=== PATIENT | male | born 1950 | race Caucasian/White ===

== ENCOUNTER 2018-09-22 18:56 | Emergency (ER) | payer MEDICARE, OTHER ==
[~2018-09-22] VITALS: Ht 180.3 cm; Wt 89.8 kg
[~2018-09-22 18:56] MED LIST: ARICEPT5 MG PO; CITALOPRAM HBR20 MG PO; CITALOPRAM HBR40 MG PO; D-AMPHETAMINE PO; LISINOPRIL-HCT1 EAC2 PO; NAMENDA10 MG PO; PRILOSEC OTC20 MG PO
--- OUTSIDE RECORDS SUMMARY | 2018-09-22 19:00 | XMS REPORT | Summary of Care ---
Author Author [facility] Address [address] [place] [address] Phone Unavailable Care Team Providers Care Lamp Developer Name Role Phone JUNAID Lui, KHOA Unavailable Unavailable MITCHELL Lui, ONEIL Unavailable Unavailable TAURUS BOGGS DC, PAULINO BENITEZ Unavailable Unavailable TAURUS Lui, PAULINO MCKAY DC, RIVAS Unavailable Unavailable MITCHELL BOGGS, ONEIL Unavailable Unavailable JUNAID BOGGS DC, KHOA GONZALEZ Unavailable Unavailable Unavailable Unavailable Functional Status Name Dates Details Functional status health issues are not documented Status: Name Dates Details Cognitive status health issues are not documented Status: Problems Name Dates Details Epicondylitis, lateral (726.32, M77.10) Status: Active Chronic pain of left elbow (719.42, M25.522) Status: Active Cellulitis (682.9, L03.90) Status: Active Infected sebaceous cyst of skin (706.2, L72.3) Status: Active Prostate cancer screening (V76.44, Z12.5) Status: Active Depression screening (V79.0, Z13.89) Status: Active Refused influenza vaccine (V64.06, Z28.21) Status: Active Rectal bleeding (569.3, K62.5) Status: Active Change in stool caliber (787.99, R19.4) Status: Active Abdominal pain, acute, epigastric (789.06, R10.13) Status: Active Encounter for hepatitis C virus screening test for high risk patient (V73.89, Z11.59) Status: Active Advance directive discussed with patient (V65.49, Z71.89) Status: Active At low risk for fall (V49.89, Z91.81) Status: Active ADD (attention deficit disorder) (314.00, F98.8) Status: Active Dementia (294.20, F03.90) Status: Active Hiatal hernia with GERD (530.81, K21.9) Status: Active Diverticulosis of colon (562.10, K57.30) Status: Active Essential (primary) hypertension (401.9, I10) Status: Active Pre-diabetes (790.29, R73.03) Status: Active Chest pain (786.50, R07.9) Status: Active Muscle weakness (generalized) (728.87, M62.81) Status: Active Left ventricular hypertrophy by electrocardiogram (429.3, I51.7) Status: Active Hyperlipidemia (272.4, E78.5) Status: Active On statin therapy (V58.69, Z79.899) Status: Active Abnormal stress ECG with treadmill (794.39, R94.39) Status: Active 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 Active Citalopram Hydrobromide TABS 60 mg daily * Refills: 0 Active Adderall 30 MG Oral Tablet TAKE 1 TABLET DAILY DIRECTED. * Refills: 0 Active Dexilant 60 MG Oral Capsule Delayed Release TAKE 1 CAPSULE DAILY * Refills: 0 * Start : 10-Feb-2017 Active Aricept 5 MG Oral Tablet TAKE 1 TABLET DAILY DIRECTED. * Refills: 0 Active Aspirin EC Low Strength 81 MG Oral Tablet Delayed Release TAKE 1 TABLET DAILY * Quantity: 90 Refills: 1 ONEIL MEDRANO M.D. * Start : 24-Jun-2017 Active Rosuvastatin Calcium 10 MG Oral Tablet TAKE 1 TABLET BY MOUTH AT BEDTIME * Quantity: 30 Refills: 2 ONEIL MEDRANO M.D. * Start : 22-Sep-2017 Active Nitroglycerin 0.4 MG Sublingual Tablet Sublingual PLACE 1 TABLET UNDER THE TONGUE EVERY 5 MINUTES FOR UP TO 3 DOSES NEEDED FOR CHEST PAIN.CALL 911 IF PAIN PERSISTS. * Quantity: 25 Refills: 2 ONEIL MEDRANO M.D. * Start : 24-Jun-2017 Active Lisinopril 10 MG Oral Tablet TAKE 1 TABLET DAILY. * Quantity: 90 Refills: 2 ONEIL MEDRANO M.D. * Start : 07-Jul-2017 Active Meloxicam 7.5 MG Oral Tablet TAKE 1 TABLET TWICE DAILY WITH FOOD. * Quantity: 60 Refills: 3 JUNAID M.D., KHOA * Start : 04-Nov-2017 Active Diclofenac Sodium 1 % Transdermal Gel APPLY TO LOWER EXTREMITIES, 4 GM OF GEL TO AFFECTED AREA 4 TIMES DAILY. DO NOT APPLY MORE THAN 16 GM DAILY TO ANY ONE AFFECTED JOINT. * Quantity: 1 Refills: 2 JUNAID M.D., KHOA * Start : 04-Nov-2017 Active 100 GM Tube MethylPREDNISolone 4 MG Oral Tablet Therapy Pack TAKE DIRECTED ON PACKAGE. * Quantity: 1 Refills: 0 JUNAID M.D., KHOA * Start : 04-Nov-2017 Active 21 Tablet Pack Allergies and Adverse Reactions Name Dates Details No Known Drug Allergies (Allergy) Status: Active Past Medical History Name Dates Details History of benign prostatic hypertrophy (V13.89, Z87.438) Status: Resolved History of colonic polyps (V12.72, Z86.010) Status: Resolved History of esophageal reflux (V12.79, Z87.19) Status: Resolved History of Peripheral neuropathy, hereditary/idiopathic (356.9, G60.9) Status: Resolved Procedures Procedure Dates Details History of Cholecystectomy Completed Immunization Name Dates Details Immunizations not documented Family History Name Dates Details Family history of rheumatoid arthritis (V17.7, Z82.61) Status: Active Name Dates Details Family history of Hypertension (V17.49) Status: Active Family history of Coronary Artery Disease (V17.49) Status: Active Family history of Lung Cancer (V16.1) Status: Active Social History Name Dates Details - Status: Name Dates Details Never smoker Vital Signs Date Test Result Details No Known Vitals to report Results Date Description Value Details 04-Nov-20179:05 [U] XRAY HAND MIN 3 VWS RIGHT 15493 XR HAND MIN 3 VWS RIGHT Images acquired, not reported on this accession number. Plan of Care Name Dates Details Planned Observations Planned Goals not documented Planned Encounters Appointment; LESLIE HAQ M.D. On: 14-Nov-2017 10:15 Appointment; KHOA QUIROGA M.D. On: 02-Dec-2017 9:15 Instructions Name Dates Details Instructions not documented Encounters Appointment; RIVSA ENAMORADO P.A. Encounter Diagnosis: Problem not documented On: 12-Jul-2016 8:45 Appointment; RIVAS ENAMORADO P.A. Encounter Diagnosis: Problem not documented On: 25-Oct-2016 10:15 Appointment; RIVAS ENAMORADO P.A. Encounter Diagnosis: Problem not documented On: 10-Feb-2017 8:30 Appointment; RIVAS ENAMORADO P.A. Encounter Diagnosis: Problem not documented On: 10-Jun-2017 8:15 Appointment; TRAM, ECHO Encounter Diagnosis: Problem not documented On: 16-Jun-2017 8:00 Appointment; ONEIL MEDRANO M.D. Encounter Diagnosis: Problem not documented On: 24-Jun-2017 14:00 Appointment; TRAM, STRESS Encounter Diagnosis: Problem not documented On: 24-Jun-2017 15:00 Appointment; ONEIL MEDRANO M.D. Encounter Diagnosis: Problem not documented On: 07-Jul-2017 15:20 Appointment; RIVAS ENAMORADO P.A. Encounter Diagnosis: Problem not documented On: 15-Sep-2017 11:00 Appointment; KHOA QUIROGA M.D. Encounter Diagnosis: Problem not documented On: 25-Sep-2017 10:00 Appointment; KHOA QUIROGA M.D. Encounter Diagnosis: Problem not documented On: 04-Nov-2017 9:30
[2018-09-22] MEDS ORDERED: TRAMADOL HCL 50 MG TAB PO NR (20:00)
--- NOTE | 2018-09-22 20:19 | Diagnostic Imaging Report ---
SHOULDER LEFT COMPLETE - 2 views HISTORY: Pain. Left shoulder pain fall. COMPARISON: None available. FINDINGS: Bones: No acute displaced fracture. Osseous alignment is within normal limits. Joints: The joint spaces are well-maintained. Soft tissues: The soft tissues appear unremarkable. IMPRESSION: No acute radiographic abnormality. Signed by: Dr. Sukhjinder Ramsey M.D. on 09/22/2018 8:16 PM
--- NOTE | 2018-09-22 20:20 | Diagnostic Imaging Report ---
ELBOW LEFT COMPLETE - 3 views HISTORY: Pain. Left elbow pain. Fall. COMPARISON: None available. FINDINGS: Bones: No acute displaced fracture. Osseous alignment is within normal limits. Calculation adjacent to the medial epicondyle, possible epicondylitis. Joints: The joint spaces are well-maintained. Soft tissues: The soft tissues appear unremarkable. IMPRESSION: 1. No acute radiographic abnormality. 2. Calculation adjacent to the medial epicondyle, possible epicondylitis. Signed by: Dr. Sukhjinder Ramsey M.D. on 09/22/2018 8:17 PM
== END 2018-09-22 21:00 | disposition home or self-care (01) ==
LOC: ER 18:56
DX: S46.012A Strain of muscle(s) and tendon(s) of the rotator cuff of left shoulder, initial encounter (principal); S50.02XA Contusion of left elbow, initial encounter; W01.0XXA Fall on same level from slipping, tripping and stumbling without subsequent striking against object, initial encounter; Y93.01 Activity, walking, marching and hiking; Y92.008 Other place in unspecified non-institutional (private) residence as the place of occurrence of the external cause
CPT/HCPCS: 99283

== ENCOUNTER → 2019-03-05 | Day surgery (SDC) | payer MEDICARE ==
--- NOTE | 2019-03-04 11:43 | Diagnostic Imaging Report ---
EXAMINATION: CHEST 2 VIEWS INDICATION: Pre-operative COMPARISON: None FINDINGS: LINES/TUBES:None LUNGS:The lungs are well-inflated. No focal consolidation or pulmonary edema. PLEURA:No pleural effusion or pneumothorax. MEDIASTINUM:The cardiomediastinal silhouette appears normal in size and shape. BONES/SOFT TISSUES:No acute osseous injury. ABDOMEN:No free air under the diaphragm. IMPRESSION: No focal pneumonia or pulmonary edema. Signed by: Alee Chun MD on 03/04/2019 11:40 AM
[2019-03-04 12:07] LABS: BASOPHILS % 0.4 % (0.0-1.0); EOSINOPHILS # (AUTO) 0.1 (0.0-0.4); EOSINOPHILS % 1.2 % (0.0-6.0); HEMATOCRIT 44.1 % (38.2-49.6); HEMOGLOBIN 14.7 g/dL (14.0-18.0); LYMPHOCYTES # (AUTO) 1.4 (1.0-3.2); LYMPHOCYTES % 20.2 % (18.0-39.1); MEAN CORPUSCULAR HEMOGLOBIN 30.6 pg (28-32); MEAN CORPUSCULAR HGB CONC 33.3 g/dL (31-35); MEAN CORPUSCULAR VOLUME 91.7 fL (81-99); MONOCYTES # (AUTO) 0.6 (0.2-0.8); MONOCYTES % 8.5 % (4.4-11.3); NEUTROPHILS # (AUTO) 4.6 (2.1-6.9); NEUTROPHILS % 69.4 % (38.7-80.0); PLATELET COUNT 224 x10e3/uL (140-360); RED BLOOD COUNT 4.81 x10e6/uL (4.3-5.7)
[2019-03-04 12:26] LABS: BLOOD UREA NITROGEN 11 mg/dL (7-26); BUN/CREATININE RATIO 11 (6-25); CALCIUM 9.7 mg/dL (8.4-10.2); CARBON DIOXIDE 25 mmol/L (22-29); CHLORIDE 101 mmol/L (98-107); CREATININE, SERUM 0.96 mg/dL (0.72-1.25); EST GLOMERULAR FILTRATION RATE > 60 ML/MIN (60-); GLUCOSE 105 mg/dL (74-118); SODIUM 138 mmol/L (136-145)
[~2019-03-05] MED LIST changes: +BUPIVACAINE 0.25%/EPI 30ML SDV INJ ONE; +DEXAMETHASONE SOD PHOS INJ 4 MG/ML VIAL ONE; +FENTANYL CITRATE/PF 100MCG/2 ML INJ ONE; +HYDROCODONE/APAP 7.5MG-325MG 1 EA TAB ONE; +HYDROGEN PEROXIDE 120 ML BTL ONE; +LIDOCAINE HCL 2% LOCAL INJ 5 ML SDV VIAL INJ ONE; +LISINOPRIL10 MG PO; +MIDAZOLAM HCL 2 MG/2 ML VIAL ONE; +ONDANSETRON HCL INJ 2MG/ML 2ML 2 MG/ML VIAL ONE; +PROPOFOL IV EMULSION 10 MG/ML 20 ML VIAL ONE; +SEVOFLURANE INHAL SOLN 250 ML PEN BTL ONE
--- OUTSIDE RECORDS SUMMARY | 2019-03-05 07:08 | XMS REPORT ---
Author Author [facility] Address Unknown Phone Unavailable Care Team Providers Care Entry Level Management Name Role Phone ERIC GONZALEZ Unavailable Unavailable Reinier GONZALES Unavailable Unavailable Problems This patient has no known problems. Allergies, Adverse Reactions, Alerts This patient has no known allergies or adverse reactions. Medications This patient has no known medications. Results Test Description Test Time Test Comments Text Results Atomic Results Result Comments CHEST 2 VIEWS 2019-03-04 11:39:00 [facility] [address] [place] [address] Patient Name: RUDDY SIMMONS MR #: [id number] : 1950 Age/Sex: 68/M Req #: [id number] Adm Physician: Ordered by: ERIC GONZALEZ MD Report #: [id number] Location: OR Room/Bed: Procedure: [id number] DX/CHEST 2 VIEWS Exam Date: 03/04/19 Exam Time: 1115 REPORT STATUS: Signed EXAMINATION: CHEST 2 VIEWS INDICATION: Pre-operative COMPARISON: None FINDINGS: LINES/TUBES:None LUNGS:The lungs are well-inflated. No focal consolidation or pulmonary edema. PLEURA:No pleural effusion or pneumothorax. MEDIASTINUM:The cardiomediastinal silhouette appears normal in size and shape. BONES/SOFT TISSUES:No acute osseous injury. ABDOMEN:No free air under the diaphragm. IMPRESSION: No focal pneumonia or pulmonary edema. Signed by: Cisco Roman MD on 03/04/2019 11:40 AM Dictated By: CISCO ROMAN MD 114 Transcribed By: TOYN OGLESBY on 03/04/19 114 COPY TO: ERIC GONZALEZ MD ELBOW LEFT COMPLETE 2018-09-22 20:16:00 [place] [id number] Patient Name: RUDDY SIMMONS MR #: [id number] : 1950 Age/Sex: 67/M Req #: [id number] Adm Physician: Ordered by: ELFEGO LEE MD Report #: [id number] Location: ER Room/Bed: Procedure: [id number] DX/ELBOW LEFT COMPLETE Exam Date: 09/22/18 Exam Time: 2000 REPORT STATUS: Signed ELBOW LEFT COMPLETE - 3 views HISTORY: Pain. Left elbow pain. Fall. COMPARISON: None available. FINDINGS: Bones: No acute displaced fracture. Osseous alignment is within normal limits. Calculation adjacent to the medial epicondyle, possible epicondylitis. Joints: The joint spaces are well-maintained. Soft tissues: The soft tissues appear unremarkable. IMPRESSION: 1. No acute radiographic abnormality. 2. Calculation adjacent to the medial epicondyle, possible epicondylitis. Signed by: Dr. Valentina Glaser M.D. on 09/22/2018 8:17 PM Dictated By: VALENTINA GLASER MD 16 Transcribed By: YASMANI on 09/22/182016 COPY TO: ELFEGO LEE MD SHOULDER LEFT COMPLETE 2018-09-22 20:15:00 [place] [id number] Patient Name: RUDDY SIMMONS MR #: [id number] : 1950 Age/Sex: 67/M Req #: [id number] [facility] Physician: Ordered by: JAYLON GONZALES MD Report #: [id number] Location: ER Room/Bed: Procedure: [id number] DX/SHOULDER LEFT COMPLETE Exam Date: 09/22/18 Exam Time: 1956 REPORT STATUS: Signed SHOULDER LEFT COMPLETE - 2 views HISTORY: Pain. Left shoulder pain fall. COMPARISON: None available. FINDINGS: Bones: No acute displaced fracture. Osseous alignment is within normal limits. Joints: The joint spaces are well-maintained. Soft tissues: The soft tissues appear unremarkable. IMPRESSION: No acute radiographic abnormality. Signed by: Dr. Valentina Glaser M.D. on 09/22/2018 8:16 PM Dictated By: VALENTINA GLASER MD 15 Transcribed By: YASMANI on 09/22/182015 COPY TO: JAYLON GONZALES MD
--- OUTSIDE RECORDS SUMMARY | 2019-03-05 07:08 | XMS REPORT | Continuity of Care Document ---
Author Author [facility] Address Unknown Phone Unavailable Care Team Providers Care Washcloth Folder Name Role Phone Patient Feed Unavailable Unavailable Problems Problem Status Onset Date Classification Date Reported Comments Source LEFT SHOULDER Active 2018 [facility] [place] ABN STRESS TEST, CHEST PAIN, HYPERLIPIDE Active 06/24/2017 [facility] Prostate hypertrophy Resolved Problem 11/26/2018 [facility], [facility] [place],[facility] [place] ESRD (Confirmed) Resolved Problem 11/26/2018 [facility], [facility] [place],[facility] [place] HLD (Confirmed) Resolved Problem 11/26/2018 [facility], [facility] [place],[facility] [place] HTN (Confirmed) Resolved Problem 11/26/2018 [facility], [facility] [place],[facility] [place] Peripheral neuropathy Resolved Problem 11/26/2018 [facility], [facility] [place],[facility] [place] Colon polyps Resolved Problem 11/26/2018 [facility], [facility] [place],[facility] [place] Medications Medication Details Route Status Patient Instructions Ordering Provider Order Date Source amphetamine-dextroamphetamine 30 mg oral capsule, extended release 30 mg=1 cap, PO, QAM, # 30 cap, 0 Refill(s) Active 07/02/2017 [facility] citalopram 40 mg oral tablet 40 mg=1 tab, PO, Daily, # 30 tab, 0 Refill(s) Active 07/02/2017 [facility] donepezil 5 mg oral tablet 5 mg=1 tab, PO, Daily, # 30 tab, 0 Refill(s) Active 07/02/2017 [facility] memantine 10 mg oral tablet 10 mg=1 tab, PO, BID, # 60 tab, 0 Refill(s) Active 07/02/2017 [facility] Amphetamine aspartate 7.5 MG / Amphetamine Sulfate 7.5 MG / Dextroamphetamine saccharate 7.5 MG / Dextroamphetamine Sulfate 7.5 MG Oral Tablet [Adderall] 30 mg=1 tab, PO, BID, 0 Refill(s) Inactive 07/02/2017 [facility] rosuvastatin 10 mg oral tablet 10 mg=1 tab, PO, Bedtime, # 30 tab, 0 Refill(s) Active 07/02/2017 [facility] Nitroglycerin 0.4 MG Sublingual Tablet 0.4 mg=1 tab, SL, Q5Min, PRN Chest pain, Give up to 3 doses. Call 911 if pain persists., # 100 tab, 0 Refill(s) Active 07/02/2017 [facility] dexlansoprazole 60 MG Enteric Coated Capsule [Dexilant] 60 mg=1 cap, PO, Daily, # 30 cap, 0 Refill(s) Active 07/02/2017 [facility] Hydrochlorothiazide 12.5 MG / Lisinopril 10 MG Oral Tablet 1 tab, PO, Daily, # 30 tab, 0 Refill(s) Active 07/02/2017 [facility] aspirin 81 mg tablet, enteric coated 81 mg=1 tab, PO, Daily, # 90 tab, 3 Refill(s) Active 07/02/2017 [facility] NS 1,000 mL 1,000 mL, Rate: 75 ml/hr, Infuse over: 13.3 hr, Route: IV, Dosing Weight 86.818 kg, Total Volume: 1,000, Start date: 07/02/17 10:25:00 INVESTMENT CONSULTANT, Duration: 30 day, Stop date: 08/01/17 10:24:00 INVESTMENT CONSULTANT, 2.1, m2 Inactive 07/02/2017 [facility] Citalopram Hydrobromide (Citalopram Hbr) 20 Mg Tablet Daily Active [facility] Citalopram Hydrobromide (Citalopram Hbr) 40 Mg Tablet Daily Active [facility] D-Amphetamine Daily Active [facility] Donepezil Hcl (Aricept) 5 Mg Tablet Bedtime Active [facility] Lisinopril/Hydrochlorothiazide (Lisinopril-Hctz 10-12.5 Mg Tab) 1 Each Tablet Daily Active [facility] Memantine Hcl (Namenda) 10 Mg Tablet Daily [facility] Omeprazole Magnesium (Prilosec Otc) 20 Mg Tablet.dr Smith [facility] Allergies, Adverse Reactions, Alerts No Known Medication Allergies Immunizations No Data Provided for This Section Results Order Name Results Value Reference Range Date Interpretation Comments Source BLOOD BANK RESULTS Antibody Scrn Negative (07/02/17 10:27 AM) 07/02/2017 [facility] BLOOD BANK RESULTS ABO/Rh AB POS 07/02/2017 [facility] CHEM PANEL Phosphorus 3.3 2.5 - 4.5 07/02/2017 [facility] CHEM PANEL Magnesium Lvl 2.1 1.8 - 2.4 07/02/2017 [facility] CHEM PANEL eGFR 71 07/02/2017 Result Comment: The eGFR is calculated using the CKD-EPI formula. In most young, healthy individuals the eGFR will be >90 mL/min/1.73m2. The eGFR declines with age. An eGFR of 60-89 may be normal in some populations, particularly the elderly, for whom the CKD-EPI formula has not been extensively validated. Use of the eGFR is not recommended in the following populations:

Individuals with unstable creatinine concentrations, including patients and those with serious co-morbid conditions.

Patients with extremes in muscle mass or diet.

The data above are obtained from the National Kidney Disease Education Program (NKDEP) which additionally recommends that when the eGFR is used in patients with extremes of body mass index for purposes of drug dosing, the eGFR should be multiplied by the estimated BMI. [facility] CHEM PANEL Potassium Lvl 4.4 3.5 - 5.1 07/02/2017 [facility] CHEM PANEL Creatinine Lvl 1.09 0.50 - 1.40 07/02/2017 [facility] CHEM PANEL Sodium Lvl 140 135 - 145 07/02/2017 [facility] CHEM PANEL BUN 14 7 - 22 07/02/2017 [facility] CHEM PANEL AGAP 10.4 10.0 - 20.0 07/02/2017 [facility] CHEM PANEL Calcium Lvl 9.3 8.5 - 10.5 07/02/2017 [facility] CHEM PANEL Glucose Lvl 110 70 - 99 07/02/2017 [facility] CHEM PANEL CO2 31 24 - 32 07/02/2017 [facility] CHEM PANEL Chloride Lvl 103 95 - 109 07/02/2017 [facility] HEMATOLOGY Eosinophils # 0.1 0.0 - 0.5 07/02/2017 [facility] HEMATOLOGY Monocytes # 0.4 0.0 - 0.8 07/02/2017 [facility] HEMATOLOGY Lymphocytes 29.0 20.0 - 40.0 07/02/2017 [facility] HEMATOLOGY Monocytes 7.5 2.0 - 12.0 07/02/2017 [facility] HEMATOLOGY Segs 60.3 45.0 - 75.0 07/02/2017 [facility] HEMATOLOGY Basophils 0.8 0.0 - 1.0 07/02/2017 [facility] HEMATOLOGY Eosinophils 2.4 0.0 - 4.0 07/02/2017 [facility] HEMATOLOGY Lymphocytes # 1.5 1.0 - 5.5 07/02/2017 [facility] HEMATOLOGY Segs-Bands # 3.1 1.5 - 8.1 07/02/2017 [facility] HEMATOLOGY INR 0.97 0.85 - 1.17 07/02/2017 [facility] HEMATOLOGY PT 12.9 12.0 - 14.7 07/02/2017 [facility] HEMATOLOGY PTT 26.0 22.9 - 35.8 07/02/2017 [facility] HEMATOLOGY MCHC 33.7 32.0 - 36.0 07/02/2017 [facility] HEMATOLOGY RDW 13.8 11.5 - 14.5 07/02/2017 [facility] HEMATOLOGY MPV 8.1 7.4 - 10.4 07/02/2017 [facility] HEMATOLOGY Platelet 188 133 - 450 07/02/2017 [facility] HEMATOLOGY MCH 29.9 27.0 - 31.0 07/02/2017 [facility] HEMATOLOGY RBC 4.66 4.70 - 6.10 07/02/2017 [facility] HEMATOLOGY Hct 41.4 42.0 - 54.0 07/02/2017 [facility] HEMATOLOGY WBC 5.2 3.7 - 10.4 07/02/2017 [facility] HEMATOLOGY MCV 88.7 80.0 - 94.0 07/02/2017 [facility] HEMATOLOGY Hgb 13.9 14.0 - 18.0 07/02/2017 [facility] Pathology Reports No Data Provided for This Section Diagnostic Reports Report Value Date Source Shoulder wo contrast MRI EXAMINATION: MR left shoulder without contrast HISTORY: M75.100 Unspecified rotator cuff tear or rupture of unspecified shoulder, not specified as traumatic - M75.100 Unspecified rotator cuff tear or rupture of unspecified shoulder, not specified as traumatic; AGE: 67 years GENDER: Male COMPARISON: There are no radiographs available for review. TECHNIQUE: Multiplanar, multisequence magnetic resonance imaging of the left shoulder is performed with a local coil. Transverse, oblique coronal, and oblique sagittal images are obtained. FINDINGS: Biceps: The long head of the biceps tendon demonstrates moderate intra-articular tendinosis enlargement. No evidence of tear.. There is no significant tenosynovitis of the long head of the biceps tendon. Labrum: Nondisplaced degenerative tearing of the superior labrum from 1:00 in the posterior superior quadrant to 8:00 in the anterosuperior quadrant. Rotator cuff tendons: Moderate supraspinatus tendinosis with bursal surface fraying of the anterior footplate and critical zone. 4 mm shallow, low-grade undersurface tear of the conjoined tendon of the posterior supraspinatus and anterior infraspinatus tendon (image 13, series 3 and image 6, series 6). Moderate subscapularis tendinosis with a low-grade interstitial tear of the cranial subscapularis tendon at the level of the superior bicipital groove. No significant medial subluxation of the biceps tendon. Moderate edema in the transverse humeral ligament. Muscles: There is normal signal intensity and muscle bulk of the rotator cuff musculature. Acromio-osseous outlet: There is a type 2 acromion without a subacromial spur. The coracoacromial and coracoclavicular ligaments are intact. Moderate acromioclavicular joint osteoarthritis. Bone: There are no acute fractures. There are no suspicious bone marrow replacing lesions. Cartilage: There is no focal glenohumeral chondral defect. Soft tissue: Small volume of fluidin the subacromial-subdeltoid bursa. A physiologic amount of fluid is present in the glenohumeral joint. The glenohumeral capsule is intact. The inferior glenohumeral ligament is unremarkable..The axilla and visualized portions of the hemithorax are unremarkable. IMPRESSION: 1. Moderate subscapularis tendinosis with a low-grade, 25% thickness interstitial tear of the distal critical zone. Reactive edema is also seen along the transverse humeral ligament. No significant medial subluxation of the biceps tendon. 2. Moderate tendinosis and thickening of the intra-articular biceps 3. Moderate supraspinatus tendinosis with bursal surface fraying anteriorly. There is also a 4 mm shallow, low-grade undersurface tear of the conjoined tendon of the posterior supraspinatus and anterior infraspinatus. 4. Moderate acromioclavicular joint osteoarthritis. 5. Degenerative tearing of the superior labrum. 6. Mild subacromial/subdeltoid bursitis. 10/05/2018 [facility] Consultation Notes No Data Provided for This Section Discharge Summaries No Data Provided for This Section History and Physicals No Data Provided for This Section Vital Signs Vital Sign Value Date Comments Source Systolic (mm Hg) 95 07/02/2017 [facility] Diastolic (mm Hg) 59 07/02/2017 [facility] Systolic (mm Hg) 95 07/02/2017 [facility] Diastolic (mm Hg) 59 07/02/2017 [facility] Systolic (mm Hg) 98 07/02/2017 [facility] Diastolic (mm Hg) 60 07/02/2017 [facility] Height 180.34 cm 07/02/2017 [facility] Weight 86.818 07/02/2017 [facility] BMI Calculated 26.69 07/02/2017 [facility] Encounters Location Location Details Encounter Type Encounter Number Reason For Visit Attending Provider ADM Date DC Date Status Source [facility] Bedded Outpatient [id number] Art Yang 07/02/2017 07/02/2017 [facility] Departed Emergency Room [id number] ELFEGO LEE MD 09/22/2018 09/22/2018 [facility] [place] Out[facility] Di[facility] Services [id number] Jose Eduardo Flores 10/05/2018 10/06/2018 SHAN[facility] Isidro [facility] [place] OP Therapy Patients [id number] Jose Eduardo Flores 10/26/2018 11/25/2018 [facility] [place] Procedures Procedure Code Date Perfomer Comments Source Cholecystectomy [id number] [facility] [place] Cholecystectomy [id number] [facility] [place] Cholecystectomy [id number] [facility] Assessment and Plan No Data Provided for This Section Plan of Care Plan of Care Date Source Discharge Date 09/22/18 9:00pm Disposition HOME, SELF-CARE Condition at Discharge Stable Instructions/Education Provided Strains Contusion Forms Provided Work/School Excuse Prescriptions See Medication Section Additional Instructions/Education APPLY ICE TO SITE FOR 20 MINUTES 4-6 TIMES A DAY FOLLOW UP WITH PRIMARY CARE PHYSICIAN 09/22/2018 [facility] Social History Social History Date Source Smoking Status Start Date Stop Date Never Smoker 09/22/2018 [facility] Social History TypeResponse Smoking Status Never smoker; Exposure to Tobacco Smoke None; Cigarette Smoking Last 365 Days No; Reg Smoking Cessation Counseling No entered on: 07/02/17 07/03/2017 [facility] [place] Social History TypeResponse Smoking Status Never smoker; Exposure to Tobacco Smoke None; Cigarette Smoking Last 365 Days No; Reg Smoking Cessation Counseling No entered on: 07/02/17 07/03/2017 [facility] [place] Social History TypeResponse Smoking Status Never smoker; Exposure to Tobacco Smoke None; Cigarette Smoking Last 365 Days No; Reg Smoking Cessation Counseling No 07/03/2017 [facility] Family History No Data Provided for This Section Advance Directives Order Name Results Value Date Source Advance Directives Advance Directives Directive Response Recorded Date/Time Does the patient have an advance directive? Yes 04/17/10 10:33am If yes, is advance directive on file with [facility]? No 07/04/14 8:04am If not on file with [facility] will patient provide a copy? No 07/04/14 8:04am 09/22/2018 [facility] Functional Status No Data Provided for This Section
--- OUTSIDE RECORDS SUMMARY | 2019-03-05 07:08 | XMS REPORT | Summary of Care ---
Author Author [facility] Address Unknown Phone Unavailable Encounter HQ Encntr_cleopatra(FIN) [id number] Date(s): 10/26/18 - 11/24/18 [facility] [place] Discharge Disposition: Home or Self Care Attending Physician: Jose Eduardo Mckenzie MD Vital Signs No data available for this section Problem List Condition Effective Dates Status Health Status Informant Prostate Resolved hypertrophy(Confirme d) ESRD (end stage Resolved renal disease)(Confirmed) HLD Resolved (hyperlipidemia)(Con firmed) HTN Resolved (hypertension)(Confi rmed) Peripheral Resolved neuropathy(Confirmed ) Colon Resolved polyps(Confirmed) Allergies, Adverse Reactions, Alerts Substance Reaction Severity Status NKDA Active Medications No data available for this section Results No data available for this section Immunizations No data available for this section Procedures Procedure Date Related Diagnosis Body Site Status Cholecystectomy Completed Social History Social History Type Response Smoking Status Never smoker; Exposure to Tobacco Smoke None; Cigarette Smoking Last 365 Days No; Reg Smoking Cessation Counseling No entered on: 07/02/17 Assessment and Plan No data available for this section
--- OUTSIDE RECORDS SUMMARY | 2019-03-05 07:08 | XMS REPORT | Summary of Care ---
Author Author [facility] Organization [facility] Address Unknown Phone Unavailable Encounter CHRIS Quintanilla(DANIELLE) [id number] Date(s): 07/02/17 - 07/02/17 [facility] [address] [facility] provided by [facility] [employer] [facility] [place] [address]- Discharge Disposition: Home or Self Care Attending Physician: Art Yang MD Admitting Physician: Art Yang MD Referring Physician: Art Yang MD Vital Signs 1 2 3 Most recent to oldest [Reference Range]: 180.34 cm (07/02/17 10:24 AM) Height 95/59 mmHg (07/02/17 4:00 PM) 95/59 mmHg (07/02/17 3:45 PM) 98/60 mmHg (07/02/17 3:30 PM) Blood Pressure [90-140/60-90 mmHg] 86.818 kg (07/02/17 10:24 AM) Weight 26.69 m2 (07/02/17 10:24 AM) Body Mass Index Problem List Condition Effective Dates Status Health Status Informant Prostate Resolved hypertrophy(Confirme d) ESRD (end stage Resolved renal disease)(Confirmed) HLD Resolved (hyperlipidemia)(Con firmed) HTN Resolved (hypertension)(Confi rmed) Peripheral Resolved neuropathy(Confirmed ) Colon Resolved polyps(Confirmed) Allergies, Adverse Reactions, Alerts Substance Reaction Severity Status NKDA Active Medications Adderall 30 mg oral tablet 30 mg=1 tab, PO, BID, 0 Refill(s) Start Date: 07/02/17 Stop Date: 07/02/17 Status: Deleted amphetamine-dextroamphetamine 30 mg oral capsule, extended release 30 mg=1 cap, PO, QAM, # 30 cap, 0 Refill(s) Start Date: 07/02/17 Status: Ordered aspirin 81 mg tablet, enteric coated 81 mg=1 tab, PO, Daily, # 90 tab, 3 Refill(s) Start Date: 07/02/17 Status: Ordered citalopram 40 mg oral tablet 40 mg=1 tab, PO, Daily, # 30 tab, 0 Refill(s) Start Date: 07/02/17 Status: Ordered Dexilant 60 mg oral delayed release capsule 60 mg=1 cap, PO, Daily, # 30 cap, 0 Refill(s) Start Date: 07/02/17 Status: Ordered donepezil 5 mg oral tablet 5 mg=1 tab, PO, Daily, # 30 tab, 0 Refill(s) Start Date: 07/02/17 Status: Ordered hydrochlorothiazide-lisinopril 12.5 mg-10 mg oral tablet 1 tab, PO, Daily, # 30 tab, 0 Refill(s) Start Date: 07/02/17 Status: Ordered memantine 10 mg oral tablet 10 mg=1 tab, PO, BID, # 60 tab, 0 Refill(s) Start Date: 07/02/17 Status: Ordered nitroglycerin 0.4 mg sublingual tablet 0.4 mg=1 tab, SL, Q5Min, PRN Chest pain, Give up to 3 doses. Call 911 if pain pe rsists., # 100 tab, 0 Refill(s) Start Date: 07/02/17 Status: Ordered NS 1,000 mL 1,000 mL, Rate: 75 ml/hr, Infuse over: 13.3 hr, Route: IV, Dosing Weight 86.818 kg, Total Volume: 1,000, Start date: 07/02/17 10:25:00 PROVIDER NETWORK MGR, Duration: 30 day, St op date: 08/01/17 10:24:00 PROVIDER NETWORK MGR, 2.1, m2 Start Date: 07/02/17 Stop Date: 07/02/17 Status: Discontinued rosuvastatin 10 mg oral tablet 10 mg=1 tab, PO, Bedtime, # 30 tab, 0 Refill(s) Start Date: 07/02/17 Status: Ordered Results BLOOD BANK RESULTS Most recent to 1 oldest [Reference Range]: ABO/Rh AB POS *Unknown* (07/02/17 10:27 AM) Antibody Scrn Negative (07/02/17 10:27 AM) ELECTROLYTES Most recent to 1 oldest [Reference Range]: Sodium Lvl [135-145 140 mEq/L mEq/L] (07/02/17 10:27 AM) Potassium Lvl 4.4 mEq/L [3.5-5.1 mEq/L] (07/02/17 10:27 AM) Chloride Lvl [95-109 103 mEq/L mEq/L] (07/02/17 10:27 AM) CO2 [24-32 mEq/L] 31 mEq/L (07/02/17 10:27 AM) AGAP [10.0-20.0 10.4 mEq/L mEq/L] (07/02/17 10:27 AM) CHEM PANEL Most recent to 1 oldest [Reference Range]: Creatinine Lvl 1.09 mg/dL [0.50-1.40 mg/dL] (07/02/17 10:27 AM) eGFR 71 mL/min/1.73m2 1 *NA* (07/02/17 10:27 AM) BUN [7-22 mg/dL] 14 mg/dL (07/02/17 10:27 AM) Glucose Lvl [70-99 110 mg/dL mg/dL] *HI* (07/02/17 10:27 AM) Calcium Lvl 9.3 mg/dL [8.5-10.5 mg/dL] (07/02/17 10:27 AM) Phosphorus [2.5-4.5 3.3 mg/dL mg/dL] (07/02/17 10:27 AM) Magnesium Lvl 2.1 mg/dL [1.8-2.4 mg/dL] (07/02/17 10:27 AM) 1Result Comment: The eGFR is calculated using the [...] from the National Kidney Disease Education Program ( NKDEP) which additionally recommends that when the eGFR is used in patients with extremes of body mass index for purposes of drug dosing, the eGFR should be mul tiplied by the estimated BMI. HEMATOLOGY Most recent to 1 oldest [Reference Range]: WBC [3.7-10.4 K/CMM] 5.2 K/CMM (07/02/17 10:27 AM) RBC [4.70-6.10 4.66 M/CMM M/CMM] *LOW* (07/02/17 10:27 AM) Hgb [14.0-18.0 g/dL] 13.9 g/dL *LOW* (07/02/17 10:27 AM) Hct [42.0-54.0 %] 41.4 % *LOW* (07/02/17 10: AM) MCV [80.0-94.0 fL] 88.7 fL (07/02/17 10:27 AM) MCH [27.0-31.0 pg] 29.9 pg (07/02/17 10: AM) MCHC [32.0-36.0 33.7 g/dL g/dL] (07/02/17 10:27 AM) RDW [11.5-14.5 %] 13.8 % (07/02/17 10:27 AM) Platelet [133-450 188 K/CMM K/CMM] (07/02/17 10:27 AM) MPV [7.4-10.4 fL] 8.1 fL (07/02/17 10:27 AM) Segs [45.0-75.0 %] 60.3 % (07/02/17 10:27 AM) Lymphocytes 29.0 % [20.0-40.0 %] (07/02/17 10:27 AM) Monocytes [2.0-12.0 7.5 % %] (07/02/17 10:27 AM) Eosinophils [0.0-4.0 2.4 % %] (07/02/17 10:27 AM) Basophils [0.0-1.0 0.8 % %] (07/02/17 10:27 AM) Segs-Bands # 3.1 K/CMM [1.5-8.1 K/CMM] (07/02/17 10:27 AM) Lymphocytes # 1.5 K/CMM [1.0-5.5 K/CMM] (07/02/17 10:27 AM) Monocytes # [0.0-0.8 0.4 K/CMM K/CMM] (07/02/17 10:27 AM) Eosinophils # 0.1 K/CMM [0.0-0.5 K/CMM] (07/02/17 10:27 AM) PT [12.0-14.7 12.9 seconds seconds] (07/02/17 10:27 AM) INR [0.85-1.17] 0.97 (07/02/17 10:27 AM) PTT [22.9-35.8 26.0 seconds seconds] (07/02/17 10:27 AM) Immunizations No data available for this section Procedures Procedure Date Related Diagnosis Body Site Cholecystectomy Social History Social History Type Response Smoking Status Never smoker; Exposure to Tobacco Smoke None; Cigarette Smoking Last 365 Days No; Reg Smoking Cessation Counseling No Assessment and Plan No data available for this section
--- OUTSIDE RECORDS SUMMARY | 2019-03-05 07:08 | XMS REPORT | Summary of Care ---
Author Author [facility] [place] Organization [facility] [place] Address Unknown Phone Unavailable Encounter HQ Elisentr_cleopatra(FIN) [id number] Date(s): 10/05/18 - 10/05/18 [facility] [place] [address] [place] [address] [phone] Discharge Disposition: Home or Self Care Attending Physician: Jose Eduardo Mckenzie MD Referring Physician: Jose Eduardo Mckenzie MD Vital Signs [...]
--- NOTE | 2019-03-05 10:40 | Operative Report ---
DATE OF PROCEDURE: 03/05/2019 SURGEON: Barrington Wilson MD PREOPERATIVE DIAGNOSIS: Infected epidermal inclusion cyst of the back. POSTOPERATIVE DIAGNOSIS: Infected epidermal inclusion cyst of the back. PROCEDURE PERFORMED: Incision and drainage of infected epidermal inclusion cyst of the back. ANESTHESIA: General. ESTIMATED BLOOD LOSS: Minimal. DRAINS: None. COMPLICATIONS: None. INDICATION AND FINDINGS: This patient is a 68-year-old male, admitted for incision and drainage of infected cyst of the back. Intraoperative findings affected epidermal inclusion cyst of the upper back, that was infected and with abscess formation. DESCRIPTION OF PROCEDURE: With the patient lying on the operative table in the supine position after administration of general anesthesia, he was prepped and draped for incision and drainage of infected cyst of the upper back. The patient was placed in the right lateral decubitus position. The central pore of the cyst was excised in an elliptical fashion with the skin. The cavity entered, then the incision was enlarged as a cruciate manner and the edges excised, given the defect in the middle over the lining and pus was removed. Culture and sensitivities were taken. The wound was irrigated. Bleeding points cauterized, then the wound was left open and packed with a Betadine containing sponge. Sterile dressing was applied. The patient tolerated the procedure well, taken to the recovery room in stable condition. MD ELIN JacksonR/MODL /[id number]
[2019-03-05 11:00] VITALS: BP 110/78
== END | disposition home or self-care (01) ==
LOC: OR 06:52
PROVIDERS: ATTEND Surgery
DX: L02.212 Cutaneous abscess of back [any part, except buttock and flank] (principal); L72.0 Epidermal cyst; K44.9 Diaphragmatic hernia without obstruction or gangrene; I10 Essential (primary) hypertension; F03.90 Unspecified dementia, unspecified severity, without behavioral disturbance, psychotic disturbance, mood disturbance, and anxiety; Z01.810 Encounter for preprocedural cardiovascular examination; Z01.812 Encounter for preprocedural laboratory examination; Z01.818 Encounter for other preprocedural examination; Z68.39 Body mass index [BMI] 39.0-39.9, adult
CPT/HCPCS: 10061; 36415; 71046; 80048; 85025; 87071; 87205; 93005; J1100; J2001; J2250; J2405; J2704; J3010

== ENCOUNTER → 2019-04-16 | Day surgery (SDC) | payer MEDICARE ==
[2019-04-14 17:23] LABS: BASOPHILS % 0.5 % (0.0-1.0); EOSINOPHILS # (AUTO) 0.1 (0.0-0.4); EOSINOPHILS % 1.5 % (0.0-6.0); HEMATOCRIT 41.4 % (38.2-49.6); HEMOGLOBIN 13.7 g/dL (14.0-18.0); LYMPHOCYTES # (AUTO) 2.3 (1.0-3.2); LYMPHOCYTES % 34.3 % (18.0-39.1); MEAN CORPUSCULAR HEMOGLOBIN 30.4 pg (28-32); MEAN CORPUSCULAR HGB CONC 33.1 g/dL (31-35); MEAN CORPUSCULAR VOLUME 91.8 fL (81-99); MONOCYTES # (AUTO) 0.7 (0.2-0.8); NEUTROPHILS # (AUTO) 3.5 (2.1-6.9); NEUTROPHILS % 53.4 % (38.7-80.0); PLATELET COUNT 214 x10e3/uL (140-360); RED BLOOD COUNT 4.51 x10e6/uL (4.3-5.7); RED CELL DISTRIBUTION WIDTH 13.2 % (11.7-14.4)
[2019-04-14 17:48] LABS: ANION GAP 12.6 mmol/L (8-16); BLOOD UREA NITROGEN 12 mg/dL (7-26); BUN/CREATININE RATIO 12 (6-25); CALCIUM 9.5 mg/dL (8.4-10.2); CARBON DIOXIDE 30 mmol/L (22-29); CHLORIDE 102 mmol/L (98-107); EST GLOMERULAR FILTRATION RATE > 60 ML/MIN (60-); GLUCOSE 87 mg/dL (74-118); POTASSIUM 3.6 mmol/L (3.5-5.1); SODIUM 141 mmol/L (136-145)
[~2019-04-16] MED LIST changes: +BACITRACIN ZINC 15 GM OINT ONE; +CEFAZOLIN SOD 1 GM VIAL ONE; +CLINDAMYCIN 600MG / 50ML 50 ML IV ONE; +EPHEDRINE SULFATE INJ 50 MG/10 ML SYR ONE; +GLYCOPYRROLATE INJ 1MG/ 5 ML SYR ONE; -HYDROCODONE/APAP 7.5MG-325MG 1 EA TAB ONE; +KETOROLAC TROMETHAMINE 30 MG/ML VIAL ONE; +MUPIROCIN 2% OINT 22 GM TUBE ONE; +NEOSTIGMINE 5 MG/5ML SYR ONE; +PHENYLEPHRINE HCL 1% 10 MG/ML VIAL ONE; +ROCURONIUM BROMIDE 10 MG/ML 5ML VIAL ONE
--- OUTSIDE RECORDS SUMMARY | 2019-04-16 05:31 | XMS REPORT | Continuity of Care Document ---
Author Author [employer] Address Unknown Phone Unavailable Care Team Providers Care Manager [employer] Name Role Phone [employer] Unavailable Unavailable Problems Problem Status Onset Date Classification Date Reported Comments Source LEFT SHOULDER Active 2018 [facility] [place] ABN STRESS TEST, CHEST PAIN, HYPERLIPIDE Active 06/24/2017 [facility] Prostate hypertrophy Resolved Problem 11/26/2018 [facility], [facility] [place],[facility] [place] ESRD (Confirmed) Resolved Problem 11/26/2018 [facility], [facility] [place],[facility] [place] HLD (Confirmed) Resolved Problem 11/26/2018 [facility], [facility] [place],[facility] [place] HTN (Confirmed) Resolved Problem 11/26/2018 [facility], [facility] [place] [place] Peripheral neuropathy Resolved Problem 11/26/2018 [facility], [facility] [place] [place] Colon polyps Resolved Problem 11/26/2018 [facility], [facility] [place],[facility] [place] Medications Medication Details Route Status Patient Instructions Ordering Provider Order Date Source amphetamine-dextroamphetamine 30 mg oral capsule, extended release 30 mg=1 cap, PO, QAM, # 30 cap, 0 Refill(s) Active 07/02/2017 [facility] citalopram 40 mg oral tablet 40 mg=1 tab, PO, Daily, # 30 tab, 0 Refill(s) Active 07/02/2017 [facility] donepezil 5 mg oral tablet 5 mg=1 tab, PO, Daily, # 30 tab, 0 Refill(s) Active 07/02/2017 [facility] memantine 10 mg oral tablet 10 mg=1 tab, PO, BID, # 60 tab, 0 Refill(s) Active 07/02/2017 [facility] Amphetamine aspartate 7.5 MG / Amphetamine Sulfate 7.5 MG / Dextroamphetamine saccharate 7.5 MG / Dextroamphetamine Sulfate 7.5 MG Oral Tablet [Adderall] 30 mg=1 tab, PO, BID, 0 Refill(s) Inactive 07/02/2017 [facility] rosuvastatin 10 mg oral tablet 10 mg=1 tab, PO, Bedtime, # 30 tab, 0 Refill(s) Active 07/02/2017 [facility] Nitroglycerin 0.4 MG Sublingual Tablet 0.4 mg=1 tab, SL, Q5Min, PRN Chest pain, Give up to 3 doses. Call 911 if pain persists., # 100 tab, 0 Refill(s) Active 07/02/2017 [facility] dexlansoprazole 60 MG Enteric Coated Capsule [Dexilant] 60 mg=1 cap, PO, Daily, # 30 cap, 0 Refill(s) Active 07/02/2017 [facility] Hydrochlorothiazide 12.5 MG / Lisinopril 10 MG Oral Tablet 1 tab, PO, Daily, # 30 tab, 0 Refill(s) Active 07/02/2017 [facility] aspirin 81 mg tablet, enteric coated 81 mg=1 tab, PO, Daily, # 90 tab, 3 Refill(s) Active 07/02/2017 [facility] NS 1,000 mL 1,000 mL, Rate: 75 ml/hr, Infuse over: 13.3 hr, Route: IV, Dosing Weight 86.818 kg, Total Volume: 1,000, Start date: 07/02/17 10:25:00 [employer], Duration: 30 day, Stop date: 08/01/17 10:24:00 [employer], 2.1, m2 Inactive 07/02/2017 [facility] Citalopram Hydrobromide (Citalopram Hbr) 20 Mg Tablet Daily Active [facility] Citalopram Hydrobromide (Citalopram Hbr) 40 Mg Tablet Daily Active [facility] D-Amphetamine Daily Active [facility] Donepezil Hcl (Aricept) 5 Mg Tablet Bedtime Active [facility] Lisinopril/Hydrochlorothiazide (Lisinopril-Hctz 10-12.5 Mg Tab) 1 Each Tablet Daily Active [facility] Memantine Hcl (Namenda) 10 Mg Tablet Daily [facility] Omeprazole Magnesium (Prilosec Otc) 20 Mg Tablet.dr Smith [facility] Allergies, Adverse Reactions, Alerts No Known Medication Allergies Immunizations No Data Provided for This Section Results Order Name Results Value Reference Range Date Interpretation Comments Source BLOOD BANK RESULTS Antibody Scrn Negative (07/02/17 10:27 AM) 07/02/2017 [facility] BLOOD BANK RESULTS ABO/Rh AB POS 07/02/2017 [facility] CHEM PANEL Phosphorus 3.3 2.5 - 4.5 07/02/2017 [facility] CHEM PANEL Magnesium Lvl 2.1 1.8 - 2.4 07/02/2017 [facility] CHEM PANEL eGFR 71 07/02/2017 Result Comment: [...] should be multiplied by the estimated BMI. [facility] CHEM PANEL Potassium Lvl 4.4 3.5 - 5.1 07/02/2017 [facility] CHEM PANEL Creatinine Lvl 1.09 0.50 - 1.40 07/02/2017 [facility] CHEM PANEL Sodium Lvl 140 135 - 145 07/02/2017 [facility] CHEM PANEL BUN 14 7 - 22 07/02/2017 [facility] CHEM PANEL AGAP 10.4 10.0 - 20.0 07/02/2017 [facility] CHEM PANEL Calcium Lvl 9.3 8.5 - 10.5 07/02/2017 [facility] CHEM PANEL Glucose Lvl 110 70 - 99 07/02/2017 [facility] CHEM PANEL CO2 31 24 - 32 07/02/2017 [facility] CHEM PANEL Chloride Lvl 103 95 - 109 07/02/2017 [facility] HEMATOLOGY Eosinophils # 0.1 0.0 - 0.5 07/02/2017 [facility] HEMATOLOGY Monocytes # 0.4 0.0 - 0.8 07/02/2017 [facility] HEMATOLOGY Lymphocytes 29.0 20.0 - 40.0 07/02/2017 [facility] HEMATOLOGY Monocytes 7.5 2.0 - 12.0 07/02/2017 [facility] HEMATOLOGY Segs 60.3 45.0 - 75.0 07/02/2017 [facility] HEMATOLOGY Basophils 0.8 0.0 - 1.0 07/02/2017 [facility] HEMATOLOGY Eosinophils 2.4 0.0 - 4.0 07/02/2017 [facility] HEMATOLOGY Lymphocytes # 1.5 1.0 - 5.5 07/02/2017 [facility] HEMATOLOGY Segs-Bands # 3.1 1.5 - 8.1 07/02/2017 [facility] HEMATOLOGY INR 0.97 0.85 - 1.17 07/02/2017 [facility] HEMATOLOGY PT 12.9 12.0 - 14.7 07/02/2017 [facility] HEMATOLOGY PTT 26.0 22.9 - 35.8 07/02/2017 [facility] HEMATOLOGY MCHC 33.7 32.0 - 36.0 07/02/2017 [facility] HEMATOLOGY RDW 13.8 11.5 - 14.5 07/02/2017 [facility] HEMATOLOGY MPV 8.1 7.4 - 10.4 07/02/2017 [facility] HEMATOLOGY Platelet 188 133 - 450 07/02/2017 [facility] HEMATOLOGY MCH 29.9 27.0 - 31.0 07/02/2017 [facility] HEMATOLOGY RBC 4.66 4.70 - 6.10 07/02/2017 [facility] HEMATOLOGY Hct 41.4 42.0 - 54.0 07/02/2017 [facility] HEMATOLOGY WBC 5.2 3.7 - 10.4 07/02/2017 [facility] HEMATOLOGY MCV 88.7 80.0 - 94.0 07/02/2017 [facility] HEMATOLOGY Hgb 13.9 14.0 - 18.0 07/02/2017 [facility] Pathology Reports No Data Provided for This [...] Comments Source Systolic (mm Hg) 95 07/02/2017 [facility] Diastolic (mm Hg) 59 07/02/2017 [facility] Systolic (mm Hg) 95 07/02/2017 [facility] Diastolic (mm Hg) 59 07/02/2017 [facility] Systolic (mm Hg) 98 07/02/2017 [facility] Diastolic (mm Hg) 60 07/02/2017 [facility] Height 180.34 cm 07/02/2017 [facility] Weight 86.818 07/02/2017 [facility] BMI Calculated 26.69 07/02/2017 [facility] Encounters Location Location Details Encounter Type Encounter Number Reason For Visit Attending Provider ADM Date DC Date Status Source [facility] Bedded Outpatient [id number] Art Yang 07/02/2017 07/02/2017 [facility] Departed Emergency Room [id number] ELFEGO LEE MD 09/22/2018 09/22/2018 [facility] [place] Outpt Diag Services [id number] Jose Eduardo Flores 10/05/2018 10/06/2018 SHA[facility] Isidro [facility] [place] OP Therapy Patients [id number] Jose Eduardo Flores 10/26/2018 11/25/2018 [facility] [place] Procedures Procedure Code Date Perfomer Comments Source Cholecystectomy [id number] [facility], SHAUN Isidro,[facility] [place] Assessment and Plan No Data Provided for This Section Plan of Care Plan of Care Date Source Discharge Date 09/22/18 9:00pm Disposition HOME, SELF-CARE Condition at Discharge Stable Instructions/Education Provided Strains Contusion Forms Provided Work/School Excuse Prescriptions See Medication Section Additional Instructions/Education APPLY ICE TO SITE FOR 20 MINUTES 4-6 TIMES A DAY FOLLOW UP WITH PRIMARY CARE PHYSICIAN 09/22/2018 [facility] Social History Social History Date Source Smoking Status Start Date Stop Date Never Smoker 09/22/2018 [facility] Social History TypeResponse Smoking Status Never smoker; Exposure to Tobacco Smoke None; Cigarette Smoking Last 365 Days No; Reg Smoking Cessation Counseling No entered on: 07/02/17 07/03/2017 [facility] Isidro Social History TypeResponse Smoking Status Never smoker; Exposure to Tobacco Smoke None; Cigarette Smoking Last 365 Days No; Reg Smoking Cessation Counseling No entered on: 07/02/17 07/03/2017 SHA[facility] Isidro Social History TypeResponse Smoking Status Never smoker; Exposure to Tobacco Smoke None; Cigarette Smoking Last 365 Days No; Reg Smoking Cessation Counseling No 07/03/2017 [facility] Family History No Data Provided for This Section Advance Directives Order Name Results Value Date Source Advance Directives Advance Directives Directive Response Recorded Date/Time Does the patient have an advance directive? Yes 04/17/10 10:33am If yes, is advance directive on file with [facility]? No 07/04/14 8:04am If not on file with [facility] will patient provide a copy? No 07/04/14 8:04am 09/22/2018 [facility] Functional Status No Data Provided for This Section
--- NOTE | 2019-04-16 09:42 | Operative Report ---
DATE OF PROCEDURE: 04/16/2019 SURGEON: Barrington Wilosn MD PREOPERATIVE DIAGNOSIS: Epidermal inclusion cyst of the back previously drained. POSTOPERATIVE DIAGNOSIS: Epidermal inclusion cyst of the back previously drained. PROCEDURE PERFORMED: Excision with flap closure of previously drained large epidermal inclusion cyst of the back. ANESTHESIA: General endotracheal. ESTIMATED BLOOD LOSS: Minimal. DRAINS: None. COMPLICATIONS: None. INDICATION AND FINDINGS: This patient is a pleasant 68-year-old male, who had undergone by me about a month ago incision and drainage of large infected epidermal inclusion cyst of the upper back. Now, the site is healed. He is admitted for excision to prevent recurrence. DESCRIPTION OF PROCEDURE: With the patient lying on the operative table in the supine position after administration of general anesthesia, he was prepped and draped, placed in the lithotomy position for excision of the epidermal inclusion cyst of the upper back. An elliptical incision was made around the cyst site that was completely healed. It measured about 10 to 12 cm, and then the elliptical incision was made and carried down through the skin and subcutaneous tissue down to the fascia, which was not taken down. Electrocautery was used to remove the specimen. Bleeding points were cauterized. The wound irrigated with peroxide and Betadine solution, and superior and inferior flaps were raised using electrocautery to allow closure without tension due to the large size of the specimen. Then, the wound was closed in three layers using a combination of 2-0 and 3-0 Vicryl for the soft tissues. The skin was closed using a combination of 2-0 and 3-0 silk. Sterile dressing was applied with Neosporin and Xeroform. A local block was given with 0.25% Marcaine with epinephrine. The patient tolerated the procedure well, was taken to recovery room in stable condition. Barrington Wilson MD PJR/MODL /[id number]
[2019-04-16 10:05] VITALS: BP 104/76
== END | disposition home or self-care (01) ==
LOC: OR 05:28
PROVIDERS: ATTEND Surgery
DX: L72.0 Epidermal cyst (principal); L90.5 Scar conditions and fibrosis of skin; I10 Essential (primary) hypertension; K44.9 Diaphragmatic hernia without obstruction or gangrene; F03.90 Unspecified dementia, unspecified severity, without behavioral disturbance, psychotic disturbance, mood disturbance, and anxiety; Z01.812 Encounter for preprocedural laboratory examination
CPT/HCPCS: 14001; 36415; 80048; 85025; 88304; J0690; J1100; J1885; J2001; J2250; J2370; J2405; J2704; J3010; J3490